=== PATIENT | male | born 1975 | race Caucasian/White ===

== ENCOUNTER → 2020-08-13 | Day surgery (SDC) | payer OTHER ==
[~2020-08-13] MED LIST: AMBIEN10 MG PO; BENTYL10 MG PO; CARAFATE1 GM PO; CIPRO500 MG PO; CYCLOBENZAPRINE10 MG PO; DIAZEPAM 5MG TAB5 MG PO; FIORICET1 EACH PO; MAXALT10 MG PO; MEDROL 4MG DOSEP4 MG PO; METRONIDAZOLE500 MG PO; NORCO 5-325 TA1 EACH PO; ONDANSETRON ODT4 MG PO; ONDANSETRON ODT4 MG SL; PHENERGAN25 M1 PO; ZENPEP DR 40,01 EACH PO; ZOFRAN4 MG PO
== END | disposition home or self-care (01) ==
LOC: FAS 08:49
DX: K52.9 Noninfective gastroenteritis and colitis, unspecified (principal); Z79.899 Other long term (current) drug therapy
CPT/HCPCS: 88305; J2250; J2704; J7120; U0002

== ENCOUNTER 2021-01-16 12:09 | Emergency (ER) | payer OTHER ==
[~2021-01-16 12:09] MED LIST changes: -CYCLOBENZAPRINE10 MG PO; -MEDROL 4MG DOSEP4 MG PO
[2021-01-16 13:35] LABS: BILIRUBIN - TOTAL 1.8 mg/dL (0.2-1.0); GLOBULIN (CALCULATION) 3.1 g/dL; POTASSIUM 4.1 mmol/L (3.5-5.1); TOTAL PROTEIN 7.1 g/dL (6.4-8.2)
[2021-01-16 13:49] LABS: BASOPHIL 0.6 % (0-2); EOSINOPHIL 0.2 % (0-5); HCT 43.8 % (42.0-52.0); HGB 15.3 g/dl (13.2-18.0); LYMPHOCYTE 56.6 % (15-48); MCHC 34.9 g/dL (32.0-36.0); MCV 88.7 fL (78.0-100.0); MONOCYTE 7.3 % (0-12); MPV 10.5 fL (6.0-9.5); NEUTROPHIL 35.1 % (41-80); NRBC 0; PLT 245 K/uL (150-400); RBC 4.94 M/uL (4.70-6.00); RDW 12.9 % (11.5-14.0); WBC 4.8 K/uL (4.0-10.5)
[2021-01-16 13:50] LABS: BILIRUBIN NEGATIVE (NEGATIVE); BLOOD NEGATIVE Ery/uL (NEGATIVE); CLARITY CLEAR (CLEAR); COLOR YELLOW (YELLOW); GLUCOSE (U) NORMAL (NORMAL); LEUKOCYTES NEGATIVE Leu/uL (NEGATIVE); NITRITE NEGATIVE (NEGATIVE); PROTEIN NEGATIVE (NEGATIVE); SPECIFIC GRAVITY <=1.005 (1.001-1.030); UROBILINOGEN 0.2 mg/dL (0.2-1.0)
[2021-01-16] MEDS ORDERED: CYCLOBENZAPRINE10 MG PO (15:18)
[2021-01-16] MEDS ORDERED: MEDROL 4MG DOSEP4 MG PO (15:18)
== END 2021-01-16 15:25 | disposition home or self-care (01) ==
LOC: FER 12:09
PROVIDERS: Emergency Medicine; Nurse Practitioner Family
DX: M54.9 Dorsalgia, unspecified (principal); R11.0 Nausea; Z87.442 Personal history of urinary calculi
CPT/HCPCS: 36415; 80053; 81003; 85025; J1885; J2405; J7030; Q9967